=== PATIENT | female | born 1960 | race African-American/Black ===

== ENCOUNTER 2018-07-08 08:43 | Emergency (ER) | payer MEDICAID ==
--- NOTE | 2018-07-08 09:55 | ED Physician Documentation ---
PD HPI HEAD INJURY - Stated complaint Stated Complaint: GLF/HEAD INJURY POST 30DAYS - Chief complaint Chief Complaint: General - History obtained from History obtained from: Patient - History of Present Illness Mechanism of head injury: Fell Where head injury occurred: Street Timing - onset: How many weeks ago (5) Location of injury: Top Quality of pain: Pain Associated symptoms: LOC, Neck pain. No: Seizures, Ear drainage, Nasal drainage Symptoms improve with: Meds Symptoms worsen with: Palpation Contributing factors: No: Anticoagulated Similar symptoms before: Diagnosis (concussion) Recently seen: Not recently seen - Additional information Additional information: 58-year-old female who is visiting here from [place] had a head injury about 5 weeks ago. About a week after that she continued to have a headache and went into the emergency department and had a CT scan done. She states that they put her on medication she took for 30 days and she finished taking this medication a few days ago. She is now developed the headache again and this is significant enough pain that she called her daughter at 4:00 in the morning. She did get some relief of the headache last night with Aleve and she continues to have a significant headache. She states that it is hurts to comb her hair where she struck her head against the iron gate last month. She describes a head injury as a trip over a jog in the sidewalk, falling forward into a steel gate. She had a momentary loss of consciousness and did not seek immediate medical attention. She did go in about 1 week later with persistence of a headache. She has no idea what the medication is that they prescribed for her. Review of Systems Constitutional: denies: Fever, Chills, Myalgias, Fatigue Eyes: denies: Decreased vision Ears: denies: Ear pain Nose: denies: Rhinorrhea / runny nose, Congestion Throat: denies: Sore throat Respiratory: denies: Dyspnea, Cough GI: denies: Abdominal Pain, Nausea, Vomiting : denies: Dysuria Skin: denies: Rash Musculoskeletal: reports: Neck pain. denies: Back pain, Extremity pain Neurologic: reports: Headache, Head injury, LOC. denies: Generalized weakness, Focal weakness, Numbness, Syncope, Seizure, Confused, Altered mental status PD PAST MEDICAL HISTORY - Present Medications Home Medications: Ambulatory Orders Medication Instructions Recorded Confirmed Amitriptyline [Elavil] 25 mg PO HS #30 tablet 07/08/18 - Allergies Allergies/Adverse Reactions: Allergies Allergy/AdvReac Type Severity Reaction Status Date / Time No Known Drug Allergies Allergy Verified 07/08/18 08:59 PD ED PE NORMAL - Vitals Vital signs reviewed: Yes (hypertensive mild ) - General General: Alert and oriented X 3, No acute distress, Well developed/nourished - HEENT HEENT: PERRL, EOMI, Ears normal, Other (There is point tenderness to the scalp over the vertex. ) - Neck Neck: Supple, no meningeal sign, No bony TTP - Cardiac Cardiac: RRR, No murmur - Respiratory Respiratory: No respiratory distress, Clear bilaterally - Abdomen Abdomen: Soft, Non tender - Back Back: No CVA TTP, No spinal TTP - Derm Derm: Normal color, Warm and dry, No rash - Extremities Extremities: No deformity, No edema - Neuro Neuro: Alert and oriented X 3, loan interviewer 2-12 intact, No motor deficit, No sensory deficit, Normal speech Eye Opening: Spontaneous Motor: Obeys Commands Verbal: Oriented GCS Score: 15 - Psych Psych: Normal mood, Normal affect Results - Vitals Vitals: Vital Signs - 24 hr 07/08/18 07/08/18 07/08/18 08:59 10:18 11:11 Temperature 36.4 C L 36.4 C L Heart Rate 60 58 L 58 L Respiratory 16 16 18 Rate Blood Pressure 139/94 H 135/97 H 155/93 H O2 Saturation 100 99 100 Oxygen O2 Source Room air - Rads (name of study) CT head Radiology: Prelim report reviewed (Impression: No evidence of acute intracranial hemorrhage or calvarial fracture.), EMP read indepedently, See rad report PD MEDICAL DECISION MAKING - ED course Complexity details: reviewed results, re-evaluated patient, considered differential, d/w patient, d/w family ED course: 58-year-old female with a persistent postconcussive headache has been taking some Naprosyn with improvement in the headaches and she continues to have headaches. She is administered dexamethasone here in the emergency department and will place her on a course of amitriptyline as a trial for her control of post concussive headache. - Sepsis Event Vital Signs: Vital Signs - 24 hr 07/08/18 07/08/18 07/08/18 08:59 10:18 11:11 Temperature 36.4 C L 36.4 C L Heart Rate 60 58 L 58 L Respiratory 16 16 18 Rate Blood Pressure 139/94 H 135/97 H 155/93 H O2 Saturation 100 99 100 Oxygen O2 Source Room air Departure - Departure Disposition: 01 Home, Self Care Clinical Impression: Post-concussion headache Condition: Stable Instructions: ED Headache Tension Follow-Up: [facility] [Provider Group] Prescriptions: Amitriptyline [Elavil] 25 mg PO HS #30 tablet Discharge Date/Time: 07/08/18 11:12
--- NOTE | 2018-07-08 10:25 | CT Report ---
Reason: persistent headache after head injury Procedure Date: 07/08/2018 Accession Number: [id number] / [id number] Procedure: CT - Head W/O CPT Code: FULL RESULT: EXAM: CT HEAD EXAM DATE: 07/08/2018 10:13 AM. CLINICAL HISTORY: Hit Top of head one month ago. COMPARISON: None. TECHNIQUE: Multiaxial CT images were obtained from the foramen magnum to the vertex. Reformats: Coronal. IV contrast: None. In accordance with CT protocol optimization, one or more of the following dose reduction techniques were utilized for this exam: automated exposure control, adjustment of mA and/or KV based on patient size, or use of iterative reconstructive technique. FINDINGS: Parenchyma: No intraparenchymal hemorrhage. No evidence of mass, midline shift, or CT findings of infarction. Fernando-white differentiation is distinct. Extraaxial Spaces: Normal for age. No subdural or epidural collections identified. Ventricles: Normal in size and position. Sinuses and Orbits: Imaged paranasal sinuses, orbits, and mastoids show no significant abnormality. Bones: No evidence of fracture or calvarial defect. IMPRESSION: No evidence of acute intracranial hemorrhage or calvarial fracture RADIA
[2018-07-08] MEDS ORDERED: DEXAMETHASONE 10 MG/ML VIAL PO STA (10:43)
[2018-07-08] MEDS ORDERED: CHERRY SYRUP 10 ML UDC PO ONE (10:45)
[2018-07-08 11:12] VITALS: BP 155/93
== END 2018-07-08 11:12 | disposition home or self-care (01) ==
LOC: ED 08:43
DX: G44.309 Post-traumatic headache, unspecified, not intractable (principal)
CPT/HCPCS: 70450; 99283; A9270

== ENCOUNTER 2018-11-10 12:31 | Emergency (ER) | payer MEDICAID ==
[2018-11-10 12:44] VITALS: BP 145/91
[2018-11-10] MEDS ORDERED: LIDOCAINE VISCOUS 2% 15 ML UDC MM STA (13:48)
--- NOTE | 2018-11-10 14:52 | ED Physician Documentation ---
History of Present Illness - Stated complaint Stated Complaint: BILAT BREAST PX - Chief complaint Chief Complaint: General - History obtained from History obtained from: Patient - Additonal information Additional information: The patient is a 58-year-old female who complains of bilateral breast pain that has been occurring intermittently for the past month or more. His become more frequent over the past week. She denies any lumps, redness, or nipple discharge. She denies history of similar symptoms in the past. Additionally she complains of intermittent epigastric discomfort with occasional difficulty swallowing. This is worse with supine position, and is associated with occasional mild shortness of breath. She denies cough, fever, nausea or vomiting. There is no change with activity. Cardiac risk factors are negative for hypertension, diabetes, hyperlipidemia, or cigarette smoking. There is a family history of early coronary artery disease in her father. Review of Systems Constitutional: reports: Fatigue. denies: Fever Ears: denies: Tinnitus/ringing Nose: denies: Congestion Throat: denies: Sore throat Cardiac: denies: Chest pain / pressure Respiratory: denies: Dyspnea, Cough GI: reports: Other (Occasional epigastric discomfort.). denies: Nausea, Vomiting : denies: Dysuria Skin: reports: Other (Bilateral breast pain.). denies: Rash Musculoskeletal: denies: Back pain, Extremity pain Neurologic: denies: Focal weakness, Numbness, Headache PD PAST MEDICAL HISTORY - Past Medical History Past Medical History: Yes Cardiovascular: Hypertension Respiratory: None Neuro: None Endocrine/Autoimmune: None GI: GERD TECHNICAL PLANNER: None : None HEENT: Chronic vision loss Psych: None Musculoskeletal: None Derm: None - Past Surgical History Past Surgical History: Yes /TECHNICAL PLANNER: section, Hysterectomy - Present Medications Home Medications: Ambulatory Orders Medication Instructions Recorded Confirmed raNITIdine HCl [Ranitidine HCl] 150 mg PO BID #28 capsule 11/10/18 - Allergies Allergies/Adverse Reactions: Allergies Allergy/AdvReac Type Severity Reaction Status Date / Time No Known Drug Allergies Allergy Verified 11/10/18 12:44 - Social History Does the pt smoke?: No Smoking Status: Never smoker Does the pt drink ETOH?: No Does the pt have substance abuse?: No - Immunizations Immunizations are current?: Yes - POLST Patient has POLST: No PD ED PE NORMAL - Vitals Vital signs reviewed: Yes (hypertensive) - General General: Alert and oriented X 3, Well developed/nourished - HEENT HEENT: Atraumatic, EOMI, Pharynx benign - Neck Neck: No adenopathy, No JVD - Cardiac Cardiac: RRR, No murmur - Respiratory Respiratory: No respiratory distress, Clear bilaterally, Other (No chest wall tenderness.) - Abdomen Abdomen: Normal bowel sounds, Soft, Other (Mild epigastric tenderness.) - Female Female : Other (Tenderness to palpation of lateral portion of breasts bilaterally. No erythema. No lumps palpated. No axillary adenopathy.) - Back Back: No CVA TTP - Derm Derm: No rash - Extremities Extremities: No edema, No calf tenderness / cord - Neuro Neuro: Alert and oriented X 3, No motor deficit, Normal speech Results - Vitals Vitals: Oxygen O2 Source Room air - EKG (time done) 14:04 Rate: Rate (enter#) Rhythm: NSR Coker: Normal Intervals: Normal [place] QRS: LVH Ischemia: Other (Diffuse T-wave flattening.) Computer interpretation: Agree with computer PD MEDICAL DECISION MAKING - ED course Complexity details: reviewed results, re-evaluated patient, considered differential, d/w patient ED course: The underlying cause for the patient's bilateral breast discomfort is uncertain at this time. There is no evidence of infectious etiology, and no lumps are detected. It is likely that a hormonal shift has occurred, resulting in breast discomfort. In addition she presents with symptoms suggestive of gastroesophageal reflux disease. Treatment in the emergency department included administration of GI cocktail, which did improve her epigastric discomfort. I discussed with her symptomatic treatment, the importance of outpatient follow-up, as well as potentially worrisome signs or symptoms that should prompt reevaluation in the emergency department. Departure - Departure Disposition: 01 Home, Self Care Clinical Impression: Breast tenderness in female GERD (gastroesophageal reflux disease) Qualifiers: Esophagitis presence: esophagitis presence not specified Qualified Code(s): K21.9 - Gastro-esophageal reflux disease without esophagitis Condition: Stable Instructions: ED GERD Follow-Up: [facility] [Provider Group] [facility] [Provider Group] [facility] [Provider Group] Prescriptions: raNITIdine HCl [Ranitidine HCl] 150 mg PO BID #28 capsule Comments: Minimize coffee, marc, and spicy foods. Take ranitidine twice daily as prescribed. You can use liquid antacid, such as Maalox or Mylanta if needed for recurrent symptoms. Follow-up with primary physician within 2 weeks if possible. Call to schedule appointment. Return to the emergency department if you develop increasing chest or abdominal pain, persistent vomiting, or otherwise worsening symptoms. Discharge Date/Time: 11/10/18 15:12
== END 2018-11-10 15:12 | disposition home or self-care (01) ==
LOC: ED 12:31
DX: N64.4 Mastodynia (principal); K21.9 Gastro-esophageal reflux disease without esophagitis; I10 Essential (primary) hypertension; I51.7 Cardiomegaly
CPT/HCPCS: 93005; 99283

== ENCOUNTER 2018-11-23 08:00 | Outpatient (CLI) | payer MEDICAID ==
[2018-11-23 19:04] LABS: BASOPHILS # (AUTO) 0.1 10^3/uL (0.0-0.1); BASOPHILS % (AUTO) 1.5 %; EOSINOPHILS # (AUTO) 0.1 10^3/uL (0.0-0.7); EOSINOPHILS % (AUTO) 2.7 %; HGB - HEMOGLOBIN 13.1 g/dL (12.0-16.0); LYMPHOCYTES # (AUTO) 2.7 10^3/uL (1.5-3.5); LYMPHOCYTES % (AUTO) 51.6 %; MEAN CORPUSCULAR HEMOGLOBIN 25.4 pg (27.0-31.0); MEAN CORPUSCULAR HGB CONC 31.7 g/dL (32.0-36.0); MEAN CORPUSCULAR VOLUME 80.1 fL (81.0-99.0); MEAN PLATELET VOLUME 8.6 fL (7.9-10.8); MONOCYTES # (AUTO) 0.6 10^3/uL (0.0-1.0); MONOCYTES % (AUTO) 12.5 %; NEUTROPHILS # (AUTO) 1.6 10^3/uL (1.5-6.6); NEUTROPHILS % (AUTO) 31.7 %; PLT - PLATELET COUNT 318 10^3/uL (130-450); RED BLOOD COUNT 5.15 10^6/uL (4.20-5.40); RED CELL DISTRIBUTION WIDTH 15.5 % (12.0-15.0); WHITE BLOOD COUNT 5.2 x10^3/uL (4.8-10.8)
[2018-11-23 19:23] LABS: THYROID STIMULATING HORMONE 2.14 uIU/mL (0.34-5.60)
[2018-11-23 19:34] LABS: ALBUMIN 4.1 g/dL (3.2-5.5); ALBUMIN/GLOBULIN RATIO 0.9 (1.0-2.2); BILIRUBIN,TOTAL 0.4 mg/dL (0.2-1.0); CALCIUM 9.4 mg/dL (8.5-10.3); CREATININE 0.8 mg/dL (0.4-1.0); TOTAL PROTEIN 8.7 g/dL (6.7-8.2)
[2018-11-23 19:35] LABS: FOLATE 19.25 ng/mL (5.90 - >24.8)
== END 2018-11-23 23:59 ==
LOC: LAB.N 08:00
PROVIDERS: ATTEND Nurse Practitioner
DX: R53.83 Other fatigue (principal); E55.9 Vitamin D deficiency, unspecified
CPT/HCPCS: 36415; 80050; 82306; 82607; 82746

== ENCOUNTER 2018-12-03 09:11 | Outpatient (CLI) | payer MEDICAID ==
--- NOTE | 2018-12-05 09:15 | Mammography Report ---
Reason: MAMMOGRAPHIC SCREENING FOR BREAST CANCER Procedure Date: 12/03/2018 Accession Number: [id number] / [id number] Procedure: KAREN - Screening Mammo w/Antione CPT Code: FULL RESULT: EXAM: Screening Mammo w/Antione DATE: 12/03/2018 9:41 AM CLINICAL HISTORY: Screening encounter. No reported risk factors. History of left breast cyst aspiration/removal. TECHNIQUE: Bilateral CC and MLO views were obtained. COMPARISON: This is a new baseline mammogram. FINDINGS: The breasts demonstrate scattered fibroglandular densities bilaterally. No suspicious masses, clustered microcalcifications, or regions of architectural distortion are identified. IMPRESSION: Negative examination RECOMMENDATION: Routine annual screening unless otherwise clinically indicated. BIRADS CATEGORY 1: Negative STANDARD QUALIFYING STATEMENTS: 1. This examination was not reviewed with the aid of Computer-Aided Detection (CAD). 2. A negative or benign imaging report should not preclude biopsy if clinically suspicious findings are present. 3. Dense breasts may obscure an underlying neoplasm. 4. This examination was reviewed with the aid of 3D breast imaging (tomosynthesis).
== END 2018-12-03 09:12 | disposition home or self-care (01) ==
LOC: DI 09:11
PROVIDERS: ATTEND Nurse Practitioner
DX: Z12.31 Encounter for screening mammogram for malignant neoplasm of breast (principal)
CPT/HCPCS: 77063; 77067